=== PATIENT | female | born 1950 | race Caucasian/White ===

== ENCOUNTER → 2016-11-23 | Outpatient (CLI) | payer MEDICARE, OTHER ==
[~2016-11-23] MED LIST: NORCO 5-325 TA1 EACH PO
== END ==
LOC: CT 08:30
DX: M25.551 Pain in right hip (principal)
CPT/HCPCS: 73700

== ENCOUNTER → 2020-10-26 | Outpatient (CLI) | payer MEDICARE ==
[~2020-10-26] MED LIST changes: +ARIMIDEX 1 MG TA1 MG PO; +FLUTICASONE TOP; +FOSAMAX70 MG PO; +GLUCOPHAGE1000 MG PO; +HYDROCODON-ACE1 EAC2 PO; +HYDROCODON-ACE1 EAC4 PO; +LISINOPRIL-HCT1 EAC1 PO; +TOPROL XL50 MG PO; +VITAMIN D PO; +Voltaren Gel 1 % TOP; +ZOFRAN4 MG PO
== END ==
LOC: CT 10-05 08:00 → KOH-I 14:01
DX: J84.112 Idiopathic pulmonary fibrosis (principal); R91.8 Other nonspecific abnormal finding of lung field
CPT/HCPCS: 71250

== ENCOUNTER 2020-12-15 18:50 | Emergency (ER) | payer MEDICARE ==
[~2020-12-15 18:50] MED LIST changes: -ARIMIDEX 1 MG TA1 MG PO; -FLUTICASONE TOP; -FOSAMAX70 MG PO; -GLUCOPHAGE1000 MG PO; -HYDROCODON-ACE1 EAC2 PO; -HYDROCODON-ACE1 EAC4 PO; -LISINOPRIL-HCT1 EAC1 PO; -TOPROL XL50 MG PO; -VITAMIN D PO; -Voltaren Gel 1 % TOP; -ZOFRAN4 MG PO
[2020-12-22] MEDS ORDERED: HYDROCODON-ACE1 EAC4 PO (14:00)
[2020-12-22] MEDS ORDERED: FOSAMAX70 MG PO (14:01)
[2020-12-22] MEDS ORDERED: FLUTICASONE TOP (14:01)
[2020-12-22] MEDS ORDERED: ARIMIDEX 1 MG TA1 MG PO (14:02)
[2020-12-22] MEDS ORDERED: GLUCOPHAGE1000 MG PO (14:02)
[2020-12-22] MEDS ORDERED: TOPROL XL50 MG PO (14:03)
[2020-12-22] MEDS ORDERED: LISINOPRIL-HCT1 EAC1 PO (14:03)
[2020-12-22] MEDS ORDERED: VITAMIN D PO (14:04)
[2020-12-24] MEDS ORDERED: HYDROCODON-ACE1 EAC2 PO (15:36)
== END 2020-12-15 22:45 | disposition home or self-care (01) ==
LOC: ER1 18:50
DX: S82.851A Displaced trimalleolar fracture of right lower leg, initial encounter for closed fracture (principal); E11.9 Type 2 diabetes mellitus without complications; I10 Essential (primary) hypertension; W01.0XXA Fall on same level from slipping, tripping and stumbling without subsequent striking against object, initial encounter
CPT/HCPCS: 27840; 71045; 73590; 73610; 73700; 96374; 96375; 96376; 99152; 99283; J2270; J2405; J2550; J2765

== ENCOUNTER → 2020-12-22 | Outpatient (CLI) | payer MEDICARE ==
[~2020-12-22] MED LIST changes: +ARIMIDEX 1 MG TA1 MG PO; +FLUTICASONE TOP; +FOSAMAX70 MG PO; +GLUCOPHAGE1000 MG PO; +HYDROCODON-ACE1 EAC2 PO; +HYDROCODON-ACE1 EAC4 PO; +LISINOPRIL-HCT1 EAC1 PO; +TOPROL XL50 MG PO; +VITAMIN D PO; +Voltaren Gel 1 % TOP; +ZOFRAN4 MG PO
[2020-12-22 11:35] LABS: RED BLOOD COUNT 5.04 M/UL (4.00-5.10); WHITE BLOOD COUNT 6.9 K/UL (4.5-11.0)
[2020-12-22 11:52] LABS: BUN/CREATININE RATIO 29 (0-10)
== END ==
LOC: OPSV2 10:00
PROVIDERS: Orthopaedic Surgery
DX: Z01.818 Encounter for other preprocedural examination (principal); S82.851A Displaced trimalleolar fracture of right lower leg, initial encounter for closed fracture; R94.31 Abnormal electrocardiogram [ECG] [EKG]; X58.XXXA Exposure to other specified factors, initial encounter
CPT/HCPCS: 36415; 80048; 85025; 93005

== ENCOUNTER → 2020-12-24 | Day surgery (SDC) | payer MEDICARE ==
[~2020-12-24] VITALS: Ht 165.1 cm; Wt 63.5 kg
== END | disposition home or self-care (01) ==
LOC: OR 09:16
PROVIDERS: Orthopaedic Surgery
PROC: 0QSG04Z Reposition Right Tibia with Internal Fixation Device, Open Approach (ICD-10-PCS; 2020-12-24)
PROC: 3E0T3BZ Introduction of Anesthetic Agent into Peripheral Nerves and Plexi, Percutaneous Approach (ICD-10-PCS; 2020-12-24)
PROC: 3E0T3BZ Introduction of Anesthetic Agent into Peripheral Nerves and Plexi, Percutaneous Approach (ICD-10-PCS; 2020-12-24)
PROC: 0QSJ04Z Reposition Right Fibula with Internal Fixation Device, Open Approach (ICD-10-PCS; principal; 2020-12-24 11:20)
DX: S82.851A Displaced trimalleolar fracture of right lower leg, initial encounter for closed fracture (principal); G89.18 Other acute postprocedural pain; I10 Essential (primary) hypertension; E11.9 Type 2 diabetes mellitus without complications; E78.5 Hyperlipidemia, unspecified; K21.9 Gastro-esophageal reflux disease without esophagitis; Z20.822 Contact with and (suspected) exposure to COVID-19; Z95.5 Presence of coronary angioplasty implant and graft; Z79.84 Long term (current) use of oral hypoglycemic drugs; Z79.899 Other long term (current) drug therapy; W01.0XXA Fall on same level from slipping, tripping and stumbling without subsequent striking against object, initial encounter; Y92.019 Unspecified place in single-family (private) house as the place of occurrence of the external cause
CPT/HCPCS: 73610; 76000; 82962; C1713; J0171; J0690; J1100; J2001; J2270; J2405; J2704; J2795; J3010; J7030; J7120

== ENCOUNTER 2021-02-26 10:31 | Emergency (ER) | payer MEDICARE ==
[~2021-02-26 10:31] MED LIST changes: -Voltaren Gel 1 % TOP; -ZOFRAN4 MG PO
[2021-02-26 13:00] LABS: HEMOGLOBIN 14.8 gm/dl (12.3-15.3); RED BLOOD COUNT 4.94 M/UL (4.00-5.10); WHITE BLOOD COUNT 5.8 K/UL (4.5-11.0)
[2021-02-26 13:25] LABS: BUN/CREATININE RATIO 20 (0-10)
[2021-02-26] MEDS ORDERED: Voltaren Gel 1 % TOP (15:59)
[2021-02-26] MEDS ORDERED: ZOFRAN4 MG PO (15:59)
== END 2021-02-26 16:30 | disposition home or self-care (01) ==
LOC: ER1 10:31
PROVIDERS: Physician Assistant Medical
DX: R06.02 Shortness of breath (principal); R10.12 Left upper quadrant pain; E11.9 Type 2 diabetes mellitus without complications; I10 Essential (primary) hypertension; Z79.899 Other long term (current) drug therapy
CPT/HCPCS: 80053; 81001; 84484; 85025; 85610; 93005; 99285; Q9967

== ENCOUNTER → 2021-05-24 | Outpatient (CLI) | payer MEDICARE ==
[~2021-05-24] MED LIST changes: +Voltaren Gel 1 % TOP; +ZOFRAN4 MG PO
== END ==
LOC: MRI 05-19 15:00
DX: K83.8 Other specified diseases of biliary tract (principal); Z90.49 Acquired absence of other specified parts of digestive tract; D18.09 Hemangioma of other sites
CPT/HCPCS: 74181

== ENCOUNTER 2021-08-19 18:05 | Emergency (ER) | payer MEDICARE ==
[~2021-08-19] VITALS: Ht 165.1 cm; Wt 63.5 kg
== END 2021-08-19 21:15 | disposition home or self-care (01) ==
LOC: ER1 18:05
DX: U07.1 COVID-19 (principal); Z23 Encounter for immunization; I10 Essential (primary) hypertension; E11.9 Type 2 diabetes mellitus without complications
CPT/HCPCS: 99283; M0245